=== PATIENT | male | born 1970 | race Caucasian/White ===

== ENCOUNTER → 2020-09-21 | Outpatient (CLI) | payer BC ==
[~2020-09-21] MED LIST: ASPIRIN CHILDRE81 MG PO; COLCHICINE0.6 M1 PO; IBU800 M1 PO; LIPITOR20 MG PO; PREVACID15 M1 PO
== END | disposition home or self-care (01) ==
LOC: US 13:47
PROVIDERS: ATTEND Family Medicine
DX: R22.9 Localized swelling, mass and lump, unspecified (principal); C79.89 Secondary malignant neoplasm of other specified sites